=== PATIENT | female | born 1950 | race Caucasian/White ===

== ENCOUNTER → 2016-10-29 | Outpatient (CLI) | payer OTHER | LOC: CIMAGING 14:45 | DX: Z12.31 Encounter for screening mammogram for malignant neoplasm of breast (principal) | CPT/HCPCS: G0202 ==

== ENCOUNTER → 2017-02-18 | Outpatient (CLI) | payer OTHER | LOC: BHLMT 15:00 | PROVIDERS: ATTEND Internal Medicine Cardiovascular Disease | DX: I47.1 Supraventricular tachycardia (principal); E78.00 Pure hypercholesterolemia, unspecified; I10 Essential (primary) hypertension; R00.2 Palpitations | CPT/HCPCS: 93005-PO ==

== ENCOUNTER → 2017-10-31 | Outpatient (CLI) | payer OTHER | LOC: CIMAGING 13:50 | PROVIDERS: ATTEND Family Medicine | DX: Z12.31 Encounter for screening mammogram for malignant neoplasm of breast (principal) ==

== ENCOUNTER → 2018-03-03 | Outpatient (CLI) | payer OTHER | LOC: BHLMT 14:30 | PROVIDERS: ATTEND Internal Medicine Cardiovascular Disease | DX: I47.1 Supraventricular tachycardia (principal); I44.7 Left bundle-branch block, unspecified; J44.9 Chronic obstructive pulmonary disease, unspecified; I10 Essential (primary) hypertension; E78.00 Pure hypercholesterolemia, unspecified | CPT/HCPCS: 93005-PO ==

== ENCOUNTER → 2018-03-13 | Outpatient (CLI) | payer OTHER | LOC: FIMAGING 12:47 | PROVIDERS: ATTEND Orthopaedic Surgery | DX: Z01.818 Encounter for other preprocedural examination (principal); M17.11 Unilateral primary osteoarthritis, right knee; M25.461 Effusion, right knee; M23.41 Loose body in knee, right knee ==

== ENCOUNTER 2018-04-09 13:15 | Observation (INO) | payer OTHER ==
[2018-05-14] MEDS ORDERED: TRANEXAMIC ACID 3,000 MG in NS (SYRINGE) 50 ML IRR ONE (06:00)
[2018-05-14] MEDS ORDERED: VANCOMYCIN PHARMACY TO DOSE MISC ONE (06:00)
[2018-05-14] MEDS ORDERED: VANCOMYCIN 1 GM in NS 250 ML IV ONE (06:00)
[2018-05-14] MEDS ORDERED: ROPIVACAINE 0.2% 80 MG, EPINEPHrine 0.2 MG, KETOROLAC TROMETHAMINE 30 MG in SYRINGE 0 ML IU ONE (06:00)
--- NOTE | 2018-05-14 07:17 | PDHPUP ---
History & Physical Update H&P update statement: This history and physical update is based on an assessment of the patient which was completed after admission or registration (within 24 hours), but prior to the surgery/procedure. H&P update: H&P reviewed & patient examined, no change in patient's condition since H&P completed
[2018-05-14] MEDS ORDERED: TRANEXAMIC ACID 3,000 MG/50 ML BAG IRR ONE (07:53)
[2018-05-14] MEDS ORDERED: ACETAMINOPHEN 325 MG TAB PO ONE (13:10)
[2018-05-14] MEDS ORDERED: DEXAMETHASONE 4 MG/ML VIAL IVP ONE (13:10)
[2018-05-14] MEDS ORDERED: FAMOTIDINE 20 MG TAB PO ONE (13:10)
[2018-05-14] MEDS ORDERED: LR 1,000 ML IV ONE (13:11)
[2018-05-14] MEDS ORDERED: LIDOCAINE 1% 2 ML INJ ID PRN (13:11)
[2018-05-14 13:56] LABS: PLATELET COUNT 272 10^3/uL (150-400)
[2018-05-14] MEDS ORDERED: MIDAZOLAM 2 MG/2 ML VIAL IVP ONE (14:13)
--- NOTE | 2018-05-14 14:51 | PDANEPAE ---
ANE History of Present Illness here for TKA ANE Past Medical History - Cardiovascular History Hx Hypertension: Yes Hx Arrhythmias: Yes Hx Chest Pain: No Hx Coronary Artery / Peripheral Vascular Disease: No Hx CHF / Valvular Disease: No Hx Palpitations: Yes Cardiovascular History Comment: LBBB. htn. hyperlipidemia. hx of short episodes of PSVT. followed by [facility] - Pulmonary History Hx COPD: Yes Hx Asthma/Reactive Airway Disease: No Hx Recent Upper Respiratory Infection: No Hx Oxygen in Use at Home: Yes O2 in Use at Home (L/minute): 1.5L at [facility] [place] Hx Sleep Apnea: No Sleep Apnea Screening Result - Last Documented: Negative Pulmonary History Comment: hx of pna and bronchitis - Neurologic History Hx Cerebrovascular Accident: No Hx Seizures: No Hx Dementia: No - Endocrine History Hx Diabetes: No Endocrine History Comment: hypothyroidism - Renal History Hx Renal Disorders: Yes Renal History Comment: hx of bladder prolapse- no issues currently - Liver History Hx Hepatic Disorders: No - Neurological & Psychiatric Hx Hx Neurological and Psychiatric Disorders: No - Cancer History Hx Cancer: No - Congenital Disorder History Hx Congenital Disorders: No - GI History Hx Gastrointestinal Disorders: Yes Gastrointestinal History Comment: IBS. barretts esophagus. collangenous colitis. diverticulitis. hx of bowel resection - Other Health History Other Health History: wears glasses. dental implants. alopecia. OA - Chronic Pain History Chronic Pain: Yes (left shoulder and right knee) - Surgical History Prior Surgeries: appy 02/2017 at [facility]. EGD. hysterectomy/ BSO. bowel resection ANE Review of Systems Review of systems is: negative Review of Systems: - Exercise capacity Exercise capacity: >=4 METS METS (RN): 4 METS ANE Patient History - Allergies Allergies/Adverse Reactions: Penicillins Allergy (Severe, Verified 05/09/18 14:30) Hives naproxen [From Naprosyn] Allergy (Intermediate, Verified 05/09/18 14:31) Hives - Home Medications Home medications: home medication list seen and reviewed Home Medications: Diltiazem HCl [Diltiazem 24Hr Cd] 120 mg PO DAILY 03/12/14 [Last Taken 05/13/18] Metoprolol Tartrate [Lopressor 50 mg (*)] 50 mg PO BID 03/12/14 [Last Taken ] Simvastatin [Zocor] 5 mg PO HS 03/12/14 [Last Taken 05/13/18] Chlorthalidone [Chlorthalidone 25 mg (*)] 25 mg PO DAILY 03/17/18 [Last Taken ] Citalopram [CeleXA] 20 mg PO HS 03/17/18 [Last Taken 05/13/18] Compounded T3/T4 (60mcg/10mcg) 1 each PO DAILY 03/17/18 [Last Taken 05/14/18] Herbals/Supplements -Info Only 1 ea PO DAILY 03/17/18 [Last Taken 05/12/18] Losartan Potassium [Cozaar 50 mg (*)] 50 mg PO HS 03/17/18 [Last Taken 05/13/18] Esomeprazole Magnesium 40 mg PO DAILY 05/13/18 [Last Taken 05/13/18] - NPO status NPO Status: no food or drink >8 hours NPO Since - Liquids (Date): 05/14/18 NPO Since - Liquids (Time): 11:30 NPO Since - Solids (Date): 05/13/18 NPO Since - Solids (Time): 21:00 - Smoking Hx Smoking Status: Former smoker - Family Anes Hx Family Hx Anesthesia Complications: none ANE Labs/Vital Signs - Labs Result Diagrams: 05/14/18 13:36 05/14/18 13:36 - Vital Signs Vital Signs: reviewed preoperatively; see RN documention for details Blood Pressure: 117/61 Heart Rate: 63 Respiratory Rate: 16 O2 Sat (%): 89 Height: 156 cm Weight: 68.8 kg ANE Physical Exam - Airway Neck exam: FROM Mallampati Score: Class 1 - Pulmonary Pulmonary: no respiratory distress - Cardiovascular Cardiovascular: regular rate and rhythym - ASA Status ASA Status: II ANE Anesthesia Plan Anesthesia Plan: spinal Regional Anesthesia: adductor canal FNB
[2018-05-14] MEDS ORDERED: oxyCODONE IR 5 MG TAB PO PRN (14:52)
[2018-05-14] MEDS ORDERED: ALBUTEROL 3 ML DEYVIAL IH PRN (14:52)
[2018-05-14] MEDS ORDERED: LR 500 ML IV PRN (14:52)
[2018-05-14] MEDS ORDERED: NALOXONE HCL 0.4 MG/ML INJ IVP PRN (14:52)
[2018-05-14] MEDS ORDERED: HYDROmorphONE/DILAUDID 2 MG/ML INJ IVP PRN (14:52)
[2018-05-14] MEDS ORDERED: ACETAMINOPHEN 500 MG TAB PO PRN (14:52)
[2018-05-14] MEDS ORDERED: NS 500 ML IV PRN (14:52)
[2018-05-14] MEDS ORDERED: DEXAMETHASONE 4 MG/ML VIAL IVP PRN (14:52)
[2018-05-14] MEDS ORDERED: ONDANSETRON 4 MG/2 ML VIAL IVP PRN ×2 (14:52→16:26)
[2018-05-14] MEDS ORDERED: PROPOFOL/EMULSION 500 MG/50 ML BOTTLE IV ONE (14:56)
[2018-05-14] MEDS ORDERED: fentaNYL 100 MCG/2 ML INJ ONE ×3 (15:22→16:43)
[2018-05-14] MEDS ORDERED: BISACODYL 10 MG SUPP PR PRN (16:26)
[2018-05-14] MEDS ORDERED: POLYETHYLENE GLYCOL 3350 17 GM PKT PO PRN (16:26)
[2018-05-14] MEDS ORDERED: ONDANSETRON DISINTEGRATING 4 MG TAB PO PRN (16:26)
[2018-05-14] MEDS ORDERED: DIPHENOXYLATE/ATROPINE LOMOTIL 1 TAB PO PRN (16:26)
[2018-05-14] MEDS ORDERED: CYCLOBENZAPRINE 10 MG TAB PO PRN (16:26)
[2018-05-14] MEDS ORDERED: LACTULOSE 20 GM/30 ML UDCUP PO PRN (16:26)
[2018-05-14] MEDS ORDERED: PROMETHAZINE HCL 25 MG SUPPR PR PRN (16:26)
[2018-05-14] MEDS ORDERED: diphenhydrAMINE 25 MG CAP PO PRN (16:26)
[2018-05-14] MEDS ORDERED: PROMETHAZINE HCL 25 MG/ML INJ IVP PRN (16:26)
[2018-05-14] MEDS ORDERED: TEMAZEPAM 15 MG CAP PO PRN (16:26)
[2018-05-14] MEDS ORDERED: MAGNESIUM HYDROXIDE 30 ML UDCUP PO PRN (16:26)
[2018-05-14] MEDS ORDERED: METOCLOPRAMIDE 10 MG/2 ML VIAL IVP PRN (16:26)
--- NOTE | 2018-05-14 16:26 | POSTOPPROG ---
Post Op Note Date of Operation: 05/14/18 Surgeon: New [place] Relays Draftsperson: ayse richardson Anesthesiologist: dr. carnes Anesthesia: Spinal, Other (Specify) (adductor canal block) Pre-op Diagnosis: right knee OA Post-op Diagnosis: same Indication: right knee pain Procedure: R TKA robot assisted Findings: severe knee OA Inf/Abcess present in the surg proc area at time of surgery?: No EBL: 50-100
[2018-05-14] MEDS ORDERED: BUPIVACAINE 0.5% 30 ML SDV ONE (16:29)
[2018-05-14] MEDS ORDERED: LR 1,000 ML IV SCH (16:30)
[2018-05-14] MEDS: fentaNYL 100 MCG/2 ML INJ IVP PRN ×2 (16:45→16:54)
--- NOTE | 2018-05-14 17:56 | POSTANESTH ---
Post Anesthetic Evaluation Cardiovascular Status: Normal, Stable Respiratory Status: Normal, Stable Level of Consciousness/Mental Status: Can Participate in Eval Pain Control: Adequate, Prn Tx Ordered Nausea/Vomiting Control: Adequate, Prn Tx Ordered Complications Possibly Related to Anesthesia: None Noted
[2018-05-14] MEDS: ACETAMINOPHEN 325 MG TAB PO SCH (20:15)
[2018-05-14] MEDS: SENNOSIDES/DOCUSATE SODIUM TAB PO SCH (20:48)
[2018-05-14] MEDS: FAMOTIDINE 20 MG TAB PO SCH (20:48)
[2018-05-14] MEDS: LOSARTAN POTASSIUM 50 MG TAB PO SCH (20:49)
[2018-05-14] MEDS: CITALOPRAM 20 MG TAB PO SCH (20:49)
[2018-05-14] MEDS: PRAVASTATIN SODIUM 10 MG TAB PO SCH (20:49)
[2018-05-14] MEDS: METOPROLOL TARTRATE 50 MG TAB PO SCH (20:49)
[2018-05-14] MEDS: ASPIRIN 81 MG CHEWABLE TAB PO SCH (20:49)
[2018-05-15] MEDS: ACETAMINOPHEN 325 MG TAB PO SCH ×4 (01:12→22:11)
[2018-05-15] MEDS ORDERED: VANCOMYCIN 750 MG in D5W 150 ML IV ONE (02:00)
--- NOTE | 2018-05-15 08:58 | SOAPPROG ---
SOAP Progress Note Assessment/Plan: Assessment: Patient is doing well POD 1 s/p R TKA Pain management: pain is well controlled on oral pain meds. VTE ppx: recommend aspirin 81 mg BID for 4 weeks, cont TWAN and SCDs Anemia: level is expected initially postop. Asymptomatic. Continue to monitor D/c planning: d/c to home today pending release from PT Plan: 05/15/18 08:56 Subjective: patient is doing well today, denies SOB, chest pain and N/v Objective: Vital Signs Temp Pulse Resp BP Pulse Ox 37.2 C 73 16 136/62 H 99 05/15/18 07:28 05/15/18 07:28 05/15/18 07:28 05/15/18 07:28 05/15/18 07:28 Laboratory Results 05/15/18 05:09 05/14/18 13:36 05/14/18 05/15/18 05/16/18 05:59 05:59 05:59 Intake Total 1760 500 Output Total 600 200 Balance 1160 300 RLe; incision dressing is clean and dry, NVI, +pf/df ICD10 Worksheet Patient Problems: Problems Problem Status Onset Primary localized osteoarthritis of right knee Acute
[2018-05-15] MEDS: ASPIRIN 81 MG CHEWABLE TAB PO SCH ×2 (09:04→22:10)
[2018-05-15] MEDS: DILTIAZEM CD 120 MG CAP PO SCH (09:04)
[2018-05-15] MEDS: CHLORTHALIDONE 25 MG TAB PO SCH (09:04)
[2018-05-15] MEDS: FAMOTIDINE 20 MG TAB PO SCH ×2 (09:04→22:10)
[2018-05-15] MEDS: SENNOSIDES/DOCUSATE SODIUM TAB PO SCH ×2 (09:05→22:10)
[2018-05-15] MEDS: METOPROLOL TARTRATE 50 MG TAB PO SCH ×2 (09:05→22:08)
--- NOTE | 2018-05-15 11:14 | ASMTLACE ---
LACE Length of stay for Answers: 2 days current admission Acuity / Level of Answers: No Care: Did the patient have an inpatient admission? Comorbidities - select Answers: Cerebrovascular disease all that apply (CVA, TIA, aneurysms, vasc ular dementia) Other Notes: HTN # of Emergency department Answers: 0 visits in the last 6 months Score: 4 Date Signed: 05/15/2018 11:13 AM Electronically Signed By:MARI Cerna
--- NOTE | 2018-05-15 14:03 | GOP ---
DATE OF OPERATION: 05/14/2018 SURGEON: Stefania Osullivan MD LEGAL DEPARTMENT MANAGER: Susan Osullivan PA-C. ANESTHESIA: Spinal. PREOPERATIVE DIAGNOSIS: Right knee osteoarthritis. POSTOPERATIVE DIAGNOSIS: Right knee osteoarthritis. PROCEDURE PERFORMED: Right total knee arthroplasty with computer navigation, robotic assist. FINDINGS: ESTIMATED BLOOD LOSS: 30 mL. INDICATIONS: The patient is a 67-year-old female with severe and progressive pain and deformity of t he right knee unresponsive to conservative care. The risks and benefits of surgical intervention wer e explained in detail. DESCRIPTION OF PROCEDURE: The patient was brought to the operative room and placed on the table in t he supine position. Spinal anesthesia was induced without difficulty. A pneumatic tourniquet was appl ied about the right proximal thigh, and the leg was prepped and draped in a sterile fashion. The leg aguilar was applied. After exsanguination by elevation the tourniquet was inflated to 250 mmHg. Incision was made anterior medial from the tibial tuberosity to a point 2 cm proximal to the superior pole of the patella. Medial parapatellar arthrotomy was carried out from the superior pole of the pa tella and posteriorly in line with the fibers of the Type II VMO. Pathology: Severe medial patellof emoral osteoarthritis. Collateral ligament was elevated and the infrapatellar fat pad was resected. The patella was everted and the articular surface was excised. A 32 mm patellar button was placed. Attention was turned first to the distal aspect of the femur. After exposure of the femur, 2 half pi ns were placed for fixation of the femoral array. In a similar fashion, 2 pins were placed anteromed ial on the tibia for fixation of the tibial array. External land marking and registration of the hip center was performed without difficulty. Internal femoral and tibial registration was carried out w ithout difficulty and the femoral and tibial checkpoints were placed and verified for accuracy. Attention was turned to the femur. The foot print for the size 3 femoral component was cut with the saw using the [employer] robotic system and verified for accuracy against the CT based plan. In a similar f ashion, the saw was used to cut the footprint for the size 3 tibial component using the Se[employer] system an d verified for accuracy against the CT based plan. The tibial articular surface was excised without d ifficulty, followed by the intercondylar box cut. The knee was extended and the remnants of the medial and lateral meniscus were excised. The posterior capsule was injected with ropivacaine, epinephrine and Toradol. A size 3 tibial tray was positioned . Trial reduction was then carried out. There was excellent range of motion, alignment, and stability using the 3 x 9 mm polyethylene. All trials were then removed. The joint was thoroughly irrigated and carefully dried. The Press-Fit c omponents were implanted. The permanent 3 x 9 mm polyethylene was placed without difficulty. The tourniquet was deflated and all bleeders were coagulated. The wound was thoroughly irrigated and closed using interrupted sutures of 2-0 Vicryl for the joint capsule. The subcu was closed with 3-0 V icryl and the skin with 4-0 Monocryl. Dermabond and Steri-Strips were applied followed by a compress alexa dressing. The patient was then moved from the operating room to the recovery room in good conditi on, having tolerated the procedure well. /[id number]/MODL
[2018-05-15] MEDS: LEVOTHYROXINE PO SCH (15:07)
[2018-05-15] MEDS: LIOTHYRONINE PO SCH (15:07)
[2018-05-15] MEDS: CITALOPRAM 20 MG TAB PO SCH (22:10)
[2018-05-15] MEDS: LOSARTAN POTASSIUM 50 MG TAB PO SCH (22:10)
[2018-05-15] MEDS: PRAVASTATIN SODIUM 10 MG TAB PO SCH (22:10)
[2018-05-16] MEDS: ACETAMINOPHEN 325 MG TAB PO SCH ×3 (04:22→15:39)
[2018-05-16 07:53] VITALS: BP 131/57
[2018-05-16] MEDS: CHLORTHALIDONE 25 MG TAB PO SCH (08:12)
[2018-05-16] MEDS: METOPROLOL TARTRATE 50 MG TAB PO SCH (08:12)
[2018-05-16] MEDS: ASPIRIN 81 MG CHEWABLE TAB PO SCH (08:12)
[2018-05-16] MEDS: FAMOTIDINE 20 MG TAB PO SCH (08:13)
[2018-05-16] MEDS: LEVOTHYROXINE PO SCH (08:13)
[2018-05-16] MEDS: SENNOSIDES/DOCUSATE SODIUM TAB PO SCH (08:13)
[2018-05-16] MEDS: LIOTHYRONINE PO SCH (08:13)
[2018-05-16] MEDS: DILTIAZEM CD 120 MG CAP PO SCH (08:13)
[2018-05-16] MEDS: oxyCODONE IR 5 MG TAB PO PRN ×2 (13:06→14:15)
== END 2018-05-16 16:24 | disposition home or self-care (01) ==
LOC: F3N 05-14 12:31
PROVIDERS: ADMIT Orthopaedic Surgery; ATTEND Orthopaedic Surgery
PROC: 8E0YXBG Computer Assisted Procedure of Lower Extremity, With Computerized Tomography (ICD-10-PCS; principal; 2018-05-14 15:00)
PROC: 8E0Y0CZ Robotic Assisted Procedure of Lower Extremity, Open Approach (ICD-10-PCS; principal; 2018-05-14 15:00)
PROC: 0SRC06Z Replacement of Right Knee Joint with Oxidized Zirconium on Polyethylene Synthetic Substitute, Open Approach (ICD-10-PCS; principal; 2018-05-14 15:00)
DX: M17.11 Unilateral primary osteoarthritis, right knee (principal); I10 Essential (primary) hypertension; E78.5 Hyperlipidemia, unspecified; I44.7 Left bundle-branch block, unspecified
CPT/HCPCS: 27447; 73560; 88311; 97116; 97161; C1776; G8978; G8979; G8980; J0171; J1100; J1885; J2250; J2704; J2795; J3010; J3370

== ENCOUNTER → 2018-07-03 | Outpatient (CLI) | payer OTHER | LOC: BHLMT 16:30 | PROVIDERS: ATTEND Internal Medicine Cardiovascular Disease | DX: R00.2 Palpitations (principal) | CPT/HCPCS: 93225-PO; 93226-PO ==

== ENCOUNTER → 2018-11-05 | Outpatient (CLI) | payer OTHER | LOC: CIMAGING 13:53 | PROVIDERS: ATTEND Family Medicine | DX: Z12.31 Encounter for screening mammogram for malignant neoplasm of breast (principal) ==